=== PATIENT | male | born 1970 | race Caucasian/White ===

== ENCOUNTER 2017-07-17 17:46 | Emergency (ER) | payer OTHER ==
[~2017-07-17] VITALS: Ht 182.9 cm; Wt 72.7 kg
[~2017-07-17 17:46] MED LIST: DIVA500T35 PO; SERT100T12 PO
[2017-07-17] MEDS ORDERED: MIRT15 PO (18:28)
[2017-07-17] MEDS ORDERED: IBUPROFEN 800 MG TABLET PO ONE (19:30)
[2017-07-17] MEDS ORDERED: LIDOCAINE HCL 1% 10 ML VIAL INJ ONE (19:30)
[2017-07-17] MEDS ORDERED: POVIDONE-IODINE 10% 15 ML SOLUTION UD TP ONE (19:30)
[2017-07-17 20:15] VITALS: BP 125/71
== END 2017-07-17 20:24 | disposition home or self-care (01) ==
LOC: EMS 17:49
DX: S05.42XA Penetrating wound of orbit with or without foreign body, left eye, initial encounter (principal); S16.1XXA Strain of muscle, fascia and tendon at neck level, initial encounter; I10 Essential (primary) hypertension; Y04.2XXA Assault by strike against or bumped into by another person, initial encounter; Y93.89 Activity, other specified; Y92.89 Other specified places as the place of occurrence of the external cause; Y99.8 Other external cause status
CPT/HCPCS: 12011; 99283; J3490

== ENCOUNTER 2017-07-20 09:35 | Emergency (ER) | payer OTHER ==
[~2017-07-20] VITALS: Ht 182.9 cm; Wt 72.7 kg
[~2017-07-20 09:35] MED LIST changes: +MIRT15 PO
[2017-07-20 10:10] VITALS: BP 109/52
[2017-07-20] MEDS ORDERED: BACITRACIN 0.9 GM PACKET OINTMENT TP ONE (10:30)
== END 2017-07-20 10:40 | disposition home or self-care (01) ==
LOC: EMS 09:36
DX: S01.112D Laceration without foreign body of left eyelid and periocular area, subsequent encounter (principal); Z79.899 Other long term (current) drug therapy; X58.XXXD Exposure to other specified factors, subsequent encounter
CPT/HCPCS: 99282